=== PATIENT | female | born 1970 | race Caucasian/White ===

== ENCOUNTER 2016-06-29 17:11 | Emergency (ER) | payer OTHER ==
[~2016-06-29 17:11] MED LIST: LORA-302 PO
[2016-06-29 17:31] VITALS: BP 116/90; PULSE 81; RESP 20; O2SAT 100
--- NOTE | 2016-06-29 17:55 | ED.REPORT ---
HPI-Chest Pain 40 and Over Date of Service Jun 29, 2016 ED Provider: History of Present Illness: waking up with racing heart, feeling sob, sweaty palms, cold sweats, back pain, tightness in chest, fatigue these are new symptoms for 2 weeks. light headed with bending and then standing. decreased appitete. no menses since jan. no primary care. 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 on how she processes medication per her report from [facility] about 8 years ago 06/29/2016 Past Medical History Anxiety Fibromyalgia PCOS Denies: Asthma Past Surgical History 2002 gallbladder Reports: Cholecystectomy Family History Noncontributory Smoking History Never Smoker Social History Alcohol Use: Denies alcohol use Drug Use: Denies drug use Other Social History: Good social support, Local resident Occupation live with Dad, , 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 06/29/2016 Ambulatory Status Independent Review of Systems Basic Review of Systems Eyes: Vision NL, No discharge Hematologic: No bleeding, No bruising Physical Exam Initial Vital Signs Vital Signs (First) Date Time Temp Pulse Resp B/P Pulse Ox O2 Delivery O2 Flow Rate FiO2 06/29/16 17:31 36.8 81 20 116/90 100 Room Air Initial VS: Reviewed, Vital signs normal Head / Eyes: Atraumatic, Normocephalic, PERRL ENT: Mucous membranes moist, Conjunctiva normal, No scleral icterus Neck: Supple, Non-tender, Full range of motion Back: No CVA tenderness Lymphatic: No lymphadenopathy Extremities: Vascular intact, Neuro intact, No swelling, No tenderness Skin: Warm, Dry, No cyanosis Neurologic: Alert, Oriented, Nonfocal Psychiatric: Mood/affect normal, Behavior normal, Normal thought content General/Constitutional: Awake, Alert, No acute distress, Well appearing, Well developed, Well hydrated, Well nourished, Cooperative, Not toxic appearing Appearance / Presentation: Positive: Appears older than age, Obese, morbidly Respiratory / Chest: Atraumatic, Breath sounds NL, Breath sounds = bilat, No respiratory distress Cardiovascular: Heart rate NL, Regular rhythm, Heart sounds NL, No gallop Abdomen: Atraumatic, Soft, Non-tender, McBurney's non-tender Interpretation & Diagnostics Interpretation & Diagnostics: IMPRESSION: No evidence for atherosclerotic plaquing or stenosis is seen in either carotid bifurcation. Lab Results Interpretation Result Diagram: 06/29/16182906/29/161829 Test 06/29/16 18:30 White Blood Count 11.7th/mm3 (3.8-10.1) Red Blood Count 5.16mil/mm3 (3.90-5.20) Hemoglobin 14.2g/dL (12.0-15.6) Hematocrit 43.3% (35.0-46.0) Mean Corpuscular Volume 83.9fL (81-100) Mean Corpuscular Hemoglobin 27.5pg (27.0-35.0) Mean Corpuscular Hemoglobin Concent 32.8% (32.0-37.0) Red Cell Distribution Width 15.1% (12.3-15.4) Platelet Count 287bil/L (150-400) Neutrophils (%) (Auto) 77.8% (40-74) Lymphocytes (%) (Auto) 14.2% (14-46) Monocytes (%) (Auto) 7.3% (4-12) Eosinophils (%) (Auto) 0.3% (0-5) Basophils (%) (Auto) 0.3% (0-3) Sodium Level 142mEq/L (134-144) Potassium Level 4.4mEq/L (3.5-5.2) Chloride Level 102mEq/L (97-108) Carbon Dioxide Level 25mmol/L (18-29) Blood Urea Nitrogen 7mg/dL (6-24) Creatinine 0.60mg/dL (0.57-1.00) Estimat Glomerular Filtration Rate 156mL/min (>59) Glucose Level 108mg/dL (60-99) Calcium Level 9.4mg/dL (8.5-10.1) Total Bilirubin 0.3mg/dL (0.0-1.2) Aspartate Amino Transf (AST/SGOT) 16U/L (0-50) Alanine Aminotransferase (ALT/SGPT) 13U/L (0-32) Alkaline Phosphatase 80U/L (25-150) Troponin T < 0.010ug/L (0.0-0.011) Pro-B-Type Natriuretic Peptide 30.77pg/mL (0-130) Total Protein 7.5g/dL (6.4-8.4) Albumin 4.3g/dL (3.4-5.0) Hold Ramos Top Tube Received (Received) X-Ray Chest Interpretation Chest Xray Interpretation: COMPARISON: None. FINDINGS: Surgical changes and devices: None. Lungs and pleura: No pleural effusions or pneumothorax. Lungs are clear. Mediastinum: Mediastinal contours are normal. Heart size is normal. Bones and chest wall: No suspicious bony abnormalities. Soft tissues appear unremarkable. IMPRESSION: No acute or active disease is seen in the two-view chest. Dictated by: Adeel Hernandez M.D. on 06/29/2016 at 19:02 Re-Eval/Medical Decision Med Decision/Clinical Course 45 year old female with multiple concerns. Symptoms have been ongoing for 2 weeks. Patient is requesting a cardiac echo this evening, advised not available from the ER. Patient is insistent in her request. She does request a "real MD" Care of patient turned over to Dr. Arceo Discharge & Departure Primary Impression: Chest pain Chest pain type: unspecified Qualified Code: R07.9 - Chest pain, unspecified Disposition: Home Patient Instructions: Chest Pain (ED) Additional Instructions: Your chest x-ray is normal. No sign of any infection or heart enlargement. Your troponin is negative. Your BNP is normal, this is an enzyme that is a marker for heart enlargement. You EKG is normal. Your blood sugar is mildly elevated at 108. Thdere is no sign of low blood sugar. Your cartoid ultrasound is normal. No sign of any blockage or narrowing. At this time there is no sign of WPW. You will need to follow with primary care for further work up of your symptoms. At this time, it does not appear to be a cardiac cause. Please establish in primary care, Consider Dr. Corado. BONDING SUPERVISOR was able to determine that you have medicaid transportation. As you took an ambulance here, you can take a yellow cab home. This will also work for scheduled appointments. Referrals: Luis To Johnna K MD EDSupervising Provider for APC: Nehemiah Arceo DO copies to: Regine Corado MD, Sue ARNP Jun 29, 2016 17:55
[2016-06-29 18:44] LABS: BASOPHILS % (AUTO) 0.3 % (0-3); EOSINOPHILS % (AUTO) 0.3 % (0-5); MONOCYTES % (AUTO) 7.3 % (4-12); Mean Corpuscular Hemoglobin 27.5 pg (27.0-35.0); Mean Corpuscular Volume 83.9 fL (81-100); NEUTROPHILS % (AUTO) 77.8 % (40-74); Platelet Count 287 bil/L (150-400)
--- NOTE | 2016-06-29 19:04 | DRSVH ---
PROCEDURE: X-RAY CHEST, TWO VIEWS ([id number]) INDICATIONS: chest pain, posteriorly on the left TECHNIQUE: 2 views of the chest were acquired. COMPARISON: None. FINDINGS: Surgical changes and devices: None. Lungs and pleura: No pleural effusions or pneumothorax. Lungs are clear. Mediastinum: Mediastinal contours are normal. Heart size is normal. Bones and chest wall: No suspicious bony abnormalities. Soft tissues appear unremarkable. IMPRESSION: No acute or active disease is seen in the two-view chest. Dictated by: Adeel Hernandez M.D. on 06/29/2016 at 19:02 Approved by: Adeel Hernandez M.D. on 06/29/2016 at 19:02
[2016-06-29 19:05] LABS: TROPONIN T < 0.010 ug/L (0.0-0.011)
--- NOTE | 2016-06-29 20:11 | DRSVH ---
PROCEDURE: US BILATERAL DUPLEX DOPPLER IMAGING OF THE CAROTIDS ([id number]) INDICATIONS: dizzy TECHNIQUE: Color and pulse Doppler interrogation was performed of both carotid systems, with image documentation and velocity measurements. COMPARISON: None. FINDINGS: All stenosis calculations are based on NASCET criteria. Right side: Brachial blood pressure: 116/96 mm Hg. Common Carotid Artery(Distal) PSV: 98.20 cm/s Internal Carotid Artery PSV- Proximal: 86.20 cm/s Mid-lon.50 cm/s Distal: 70.60 cm/s EDV - Proximal: 16.20 cm/s Mid-lon.50 cm/s Distal: 19.10 cm/s External Carotid Artery(Proximal) PSV: 100.80 cm/s ICA/CCA PSV ratio: 0.9 Yusuf scale imaging description: There is no plaque seen Percent internal carotid artery stenosis: No stenosis.. Vertebral artery: Flow direction is antegrade. Left side: Brachial blood pressure: 120/92 mm Hg. Common Carotid Artery(Distal) PSV: 99.50 cm/s Internal Carotid Artery PSV - Proximal: 61.10 cm/s Mid-lon cm/s Distal: 71.70 cm/s EDV - Proximal: 19 cm/s Mid-lon.50 cm/s Distal: 27.80 cm/s External Carotid Artery(Proximal) PSV: 72.90 cm/s ICA/CCA PSV ratio: 0.7 Yusuf scale imaging description: No atherosclerotic plaquing identified Percent internal carotid artery stenosis: No stenosis. Vertebral artery: Flow direction is antegrade. IMPRESSION: No evidence for atherosclerotic plaquing or stenosis is seen in either carotid bifurcatio n. Dictated by: Adeel Hernandez M.D. on 06/29/2016 at 20:08 Approved by: Adeel Hernandez M.D. on 06/29/2016 at 20:09
[2016-06-29] MEDS ORDERED: LORazepam 0.5 mg Tablet PO ONE (20:45)
[2016-06-29 23:01] VITALS: BP 117/77; PULSE 85; RESP 18; O2SAT 93
== END 2016-06-29 23:02 | disposition home or self-care (01) ==
LOC: EDBD 17:11 → SED 17:18
DX: R07.9 Chest pain, unspecified (principal)